=== PATIENT | female | born 1955 | race Caucasian/White ===

== ENCOUNTER 2023-08-07 06:17 | Outpatient (RCR) | payer MEDICARE, SELFPAY | END 2023-08-07 23:59 | disposition home or self-care (01) | LOC: RPT 06:17 | PROVIDERS: ATTENDING PHYSICIAN Physical Medicine & Rehabilitation; FAMILY PHYSICIAN Physician Assistant | DX: I63.512 Cerebral infarction due to unspecified occlusion or stenosis of left middle cerebral artery (principal); I69.320 Aphasia following cerebral infarction; Z73.6 Limitation of activities due to disability | CPT/HCPCS: 92523; 97110; 97163; 97167; 97530 ==

== ENCOUNTER 2023-09-12 09:28 | Outpatient (RCR) | payer MEDICARE, SELFPAY | END 2023-09-12 23:59 | disposition home or self-care (01) | LOC: RPT 09:28 | PROVIDERS: ATTENDING PHYSICIAN Physical Medicine & Rehabilitation; FAMILY PHYSICIAN Physician Assistant | DX: I69.320 Aphasia following cerebral infarction (principal); Z73.6 Limitation of activities due to disability | CPT/HCPCS: 92507; 97110; 97112; 97116; 97530; 97535 ==

== ENCOUNTER 2023-10-08 11:40 | Emergency (ER) | payer MEDICARE, SELFPAY ==
[2023-10-08 11:44] VITALS: BP 201/111
--- NOTE | 2023-10-08 12:09 | ED.PDOC.TRB ---
ED Provider Triage
-
A medical screening examination has been initiated by a qualified medical provider. Based on the assessment performed at this time, it has been determined that an emergent medical condition may exist and the patient has been informed that further
medical evaluation and possible additional diagnostic testing may be needed.
HPI: This is a medical evaluation conducted in person to initiate diagnostic evaluation and provide initial therapeutics. Please see further documentation by the treating clinician.
GENERAL: Alert , in no apparent distress
EYE: No visual abnormalities.
ENT: No visible abnormalities.
LUNGS: No acute respiratory distress
NEUROLOGICAL: Alert and oriented, aphasia
no appreciated R or L sided deficitis for weakness
SKIN: Skin intact. No visible changes.
MUSCULOSKELETAL: Moving extremities normally
PSYCH: Normal and appropriate interaction.
68 y/o F with h/o recent ischemic stroke not ac
stent L carotid?
mass general
residual aphasia and minimal R sided weakness
1 week of L sided weakness appreciated by PT today and sent in
no headache
pain and some dizziness with turning her head to the R
on exam some aphasia whichi s baseline
no weakness appreciated
labs, cta.
[2023-10-08 12:15] LABS: % Basophils 0.5 % (0-2); % Eosinophils 0.8 % (0-6); % Immature Granulocytes 0.3 % (0-0.5); % Lymphocytes 17.3 % (20.5-51.1); % Monocytes 4.7 % (1.7-9.3); % Neutrophils 76.4 % (42.2-75.2); Absolute Basophils 0.1 10^3/uL (0-0.2); Absolute Eosinophils 0.1 10^3/uL (0-0.7); Absolute Monocytes 0.5 10^3/uL (0.1-0.6); Absolute Neutrophils 8.7 10^3/uL (1.4-6.5); Hematocrit 44.1 % (37.0-47.0); Hemoglobin 15.5 g/dL (12.0-16.0); Mean Corp Hgb Conc. 35.1 g/dL (33.0-37.0); Mean Corpuscular Hgb 29.5 pg (27.0-31.0); Mean Corpuscular Volume 83.8 fL (81.0-99.0); Nucleated Red Blood Cells % 0 %; Platelet Count 338 10^3/uL (130-400); Red Blood Cell Count 5.26 10^6/uL (4.20-5.40); White Blood Cell Count 11.4 10^3/uL (4.8-10.8)
[2023-10-08 12:27] LABS: INR 0.97; PT 12.7 Sec (11.4-14.6)
[2023-10-08 12:28] LABS: APTT 32.5 Sec (23.4-35.0)
[2023-10-08 12:30] LABS: ALT (SGPT) 23 U/L (0-35); AST (SGOT) 24 U/L (14-36); Albumin 4.5 g/dl (3.5-5.0); Alkaline Phosphatase 164 U/L (38-126); Blood Urea Nitrogen 16 mg/dl (7-17); Carbon Dioxide 32 mmol/L (22-30); Chloride 103 mmol/L (98-107); Glucose 103 mg/dl (70-99); Potassium 4.2 mmol/L (3.5-5.1); Sodium 145 mmol/L (135-145); Total Bilirubin 0.6 mg/dl (0.2-1.3); Total Protein 7.2 g/dl (6.3-8.2); eGFR > 60.00
[2023-10-08 12:38] VITALS: BP 154/94
[2023-10-08 13:00] VITALS: BP 153/80
[2023-10-08 14:36] VITALS: BP 159/85
[2023-10-08 15:00] VITALS: BP 178/89
--- NOTE | 2023-10-08 15:45 | ED.GENMED ---
History of Present Illness
General
Chief Complaint: Weakness
Source: patient
Exam Limitations: none
Time Seen by Provider: 10/08/23 12:28
History of Present Illness
History of Present Illness:
68-year-old female with a history of stroke affecting her right side who presents with slowly progressive left-sided weakness. Reportedly physical therapy noted some weakness as well. The patient does have a noted aphasia but is clearly able to
communicate her concerns. Patient states that when she tests her strength it seems normal but does just not feel right. Little bit in the arm but more notable in the leg. Patient also states she has been dizzy. Patient does have a history of
developing a left-sided stroke and required a left carotid artery stent. She was told the future to evaluate for the right side but after physical therapy. Patient still going through physical therapy. No headache. No vision change in aphasia.
Past History
Past History
ED Past Medical History: CVA, GERD, HTN and Hypercholesterolemia
ED Past Surgical History: Gynecological
Phy Exam
Physical Exam
Physical Exam:
CONSTITUTIONAL Patient alert and oriented to person, place and time. Well-appearing. Vital signs reviewed.
HEAD atraumatic, normocephalic.
EYES eyelids normal to inspection, Pupils equally round and reactive to light, Extraocular muscles intact, Conjunctiva normal, Sclera normal.
NECK normal range of motion, Trachea midline, no jugular venous distention.
RESPIRATORY CHEST No respiratory distress noted, Chest expansion equal, Bilateral breath sounds clear.
CARDIOVASCULAR regular rate and rhythm, Heart sounds normal.
BACK normal inspection, no obvious deformities
UPPER EXTREMITY range of motion normal, Motor strength normal, no cyanosis, no edema.
LOWER EXTREMITY range of motion normal, Motor strength normal, no cyanosis, no edema.
NEURO mild aphasia noted, No focal motor deficits, normal [id number]. No pronator drift. Brenda coma scale 15, Memory normal, Cranial Nerves intact to screening exam.
SKIN skin warm, dry, and normal in color.
PSYCHIATRIC patient oriented to person place and time, Normal affect.
Course
Orders/Labs/Results
Orders:
Orders
10/08/23 11:54
Electrocardiogram (*1) Urgent
Reason for Study: Fatigue / Weakness
EKG- Treatment ONCE
10/08/23 12:03
CT Head & Neck Angio W/wo IV Urgent
Comment: ischemic stroke, carotid stent L
Reason For Exam: dizziness turning to the R, L weakness
10/08/23 12:06
Complete Blood Count/With Diff Urgent
Comprehensive Metabolic Panel Urgent
PTT Urgent
Prothrombin Time Urgent
Abnormal Lab Results
10/08/23
12:06
WBC 11.4 H 10^3/uL
(4.8-10.8)
Absolute Neuts (auto) 8.7 H 10^3/uL
(1.4-6.5)
Neutrophils % 76.4 H %
(42.2-75.2)
Lymphocytes % 17.3 L %
(20.5-51.1)
Carbon Dioxide 32 H mmol/L
(22-30)
Glucose 103 H mg/dl
(70-99)
Alkaline Phosphatase 164 H U/L
(38-126)
10/08/23 12:06
10/08/23 12:06
Vital Signs
Initial and Last Documented VS:
Initial Vital Signs
Temp Pulse Resp BP Pulse Ox
98.0 F 92 16 201/111 98
10/08/23 11:44 10/08/23 11:44 10/08/23 11:44 10/08/23 11:44 10/08/23 11:44
Last Documented Vital Signs
Temp Pulse Resp BP Pulse Ox
98.0 F 78 17 178/89 98
10/08/23 11:44 10/08/23 15:45 10/08/23 15:45 10/08/23 15:00 10/08/23 11:44
MDM/Problems Addressed
MDM/Problems Addressed:
Left-sided weakness, cerebrovascular disease
*Radiology
Radiology exam reviewed: radiology read reviewed
*Pulse Oximetry
Patient hypoxic: no
*EKG
Interpreted by ED Provider?: Yes
Interpretation: normal
Rate: normal
Rhythm: sinus
Derry: normal axis
QRS Pattern: normal QRS
Ischemia: no ischemia
*International Sales Manager Interpretation
Rate: normal
Interpretation: normal
Rhythm: sinus
*Critical Care Note
Total Time (30-74mins, 75-104mins- exclusive of procedures): Not Applicable
Data Reviewed
Source: patient and family
Prescriptions/Medications Considered But Not Given:
Consider tnk but symptoms have been ongoing for 1 week. Also no current focal findings
Patient Management
Discussion with other providers: Plug Maker (Neurology)
Escalation/DeEscalation of care consider admission/obs:
Case discussed with Dr. Hallman. CTA results reviewed with him. Patient is already on aspirin and Plavix and medical management. Dr. Hallman does not recommend anything further at this point and feel she can follow as an outpatient. Her exam is
nonfocal on my assessment as far as new findings. She does continue to have a mild aphasia. I did forward her name to neurology who will arrange outpatient follow-up.
ED Attending Note
-
Portions of this chart may have been created with voice recognition software.� Occasional wrong word or��sound alike� substitutions may have occurred due to the inherent limitations of voice recognition software.
Discharge Plan
Departure
Patient Disposition: Home (Routine Discharge)
Date of Disposition: 10/08/23
Time of Disposition: 16:49
Patient with high blood pressure during this ER visit?: Yes
Discharge Problem:
Weakness
Instructions: Generalized Weakness (DC), BLOOD PRESSURE
Referrals:
Toño Hallman MD [Active] -
UNKNOWN - PT DOES,NOT KNOW [Family Provider] -
Activity Restrictions/Additional Instructions:
Please see neurology in the next 1 to 2 weeks for follow-up and reevaluation. Return for numbness, tingling, motor weakness, worsening aphasia, headache, vision changes or any other concerns. Please continue your aspirin and Plavix as prescribed.
Interventions
Interventions:
*Risk Screen - Suicide Last Done: 10/08/23 12:19
*General Assessment Last Done: 10/08/23 12:24
*Neglect/Abuse Screening Last Done: 10/08/23 12:19
ED- Fall Risk Assessment Last Done: 10/08/23 12:24
*ED COVID-19 Vaccine History Last Done: 10/08/23 12:24
ED- Cardiac Assessment Last Done: 10/08/23 12:45
ED- Neurological Assessment Last Done: 10/08/23 12:42
ED- Pulmonary Assessment Last Done: 10/08/23 12:42
Discharge Date and Time
Print Language: PAKISTANI
== END 2023-10-08 17:06 | disposition home or self-care (01) ==
LOC: EMR 11:40
PROVIDERS: Physician Assistant; EMERGENCY PHYSICIAN Emergency Medicine
DX: R53.1 Weakness (principal); R42 Dizziness and giddiness; I69.354 Hemiplegia and hemiparesis following cerebral infarction affecting left non-dominant side; I69.320 Aphasia following cerebral infarction; I10 Essential (primary) hypertension; E78.00 Pure hypercholesterolemia, unspecified; K21.9 Gastro-esophageal reflux disease without esophagitis; Z91.048 Other nonmedicinal substance allergy status; Z79.82 Long term (current) use of aspirin
CPT/HCPCS: 99285; 70496; 70498; 80053; 85025; 85610; 85730; 92507; 93005; 97110; 97112; 97530; Q9967

== ENCOUNTER 2023-10-12 11:45 | Outpatient (RCR) | payer MEDICARE, SELFPAY | END 2023-10-12 23:59 | disposition home or self-care (01) | LOC: RPT 11:45 | PROVIDERS: ATTENDING PHYSICIAN Physical Medicine & Rehabilitation; FAMILY PHYSICIAN Physician Assistant | DX: I63.512 Cerebral infarction due to unspecified occlusion or stenosis of left middle cerebral artery (principal); I69.320 Aphasia following cerebral infarction (principal); I69.398 Other sequelae of cerebral infarction; Z73.6 Limitation of activities due to disability | CPT/HCPCS: 92507; 97110; 97112; 97116; 97140; 97530; 97535 ==

== ENCOUNTER 2023-11-09 06:36 | Outpatient (RCR) | payer MEDICARE, SELFPAY | END 2023-11-09 23:59 | disposition home or self-care (01) | LOC: RPT 06:36 | PROVIDERS: ATTENDING PHYSICIAN Physical Medicine & Rehabilitation; FAMILY PHYSICIAN Physician Assistant | DX: I63.512 Cerebral infarction due to unspecified occlusion or stenosis of left middle cerebral artery (principal); I69.351 Hemiplegia and hemiparesis following cerebral infarction affecting right dominant side; I69.320 Aphasia following cerebral infarction; Z73.6 Limitation of activities due to disability | CPT/HCPCS: 92507; 97010; 97022; 97110; 97112; 97116; 97530; 97535 ==

== ENCOUNTER 2023-12-11 06:04 | Outpatient (RCR) | payer MEDICARE, SELFPAY | END 2023-12-11 23:59 | disposition home or self-care (01) | LOC: RPT 06:04 | PROVIDERS: ATTENDING PHYSICIAN Physical Medicine & Rehabilitation; FAMILY PHYSICIAN Physician Assistant | DX: I69.320 Aphasia following cerebral infarction (principal); Z73.6 Limitation of activities due to disability; I69.351 Hemiplegia and hemiparesis following cerebral infarction affecting right dominant side; I69.328 Other speech and language deficits following cerebral infarction | CPT/HCPCS: 92507; 97110; 97112; 97530; 97535 ==

== ENCOUNTER 2024-01-11 08:07 | Outpatient (RCR) | payer MEDICARE, SELFPAY | END 2024-01-11 23:59 | disposition home or self-care (01) | LOC: RPT 08:07 | PROVIDERS: ATTENDING PHYSICIAN Physical Medicine & Rehabilitation; FAMILY PHYSICIAN Physician Assistant | DX: I69.320 Aphasia following cerebral infarction (principal); Z73.6 Limitation of activities due to disability; I69.354 Hemiplegia and hemiparesis following cerebral infarction affecting left non-dominant side; I69.351 Hemiplegia and hemiparesis following cerebral infarction affecting right dominant side; I69.328 Other speech and language deficits following cerebral infarction | CPT/HCPCS: 92507; 97530; 97535 ==

== ENCOUNTER 2024-02-08 07:24 | Outpatient (RCR) | payer MEDICARE, SELFPAY | END 2024-02-08 23:59 | disposition home or self-care (01) | LOC: RPT 07:24 | PROVIDERS: ATTENDING PHYSICIAN Physical Medicine & Rehabilitation; FAMILY PHYSICIAN Physician Assistant | DX: I69.320 Aphasia following cerebral infarction (principal); I69.351 Hemiplegia and hemiparesis following cerebral infarction affecting right dominant side; Z73.6 Limitation of activities due to disability; I69.328 Other speech and language deficits following cerebral infarction | CPT/HCPCS: 92507; 97112; 97530; 97535 ==

== ENCOUNTER 2024-03-14 06:52 | Outpatient (RCR) | payer MEDICARE, MEDICAID, SELFPAY | END 2024-03-14 23:59 | disposition home or self-care (01) | LOC: RPT 06:52 | PROVIDERS: ATTENDING PHYSICIAN Physical Medicine & Rehabilitation; FAMILY PHYSICIAN Physician Assistant | DX: I69.320 Aphasia following cerebral infarction (principal); I69.351 Hemiplegia and hemiparesis following cerebral infarction affecting right dominant side; Z73.6 Limitation of activities due to disability; I69.328 Other speech and language deficits following cerebral infarction | CPT/HCPCS: 92507; 97530; 97535 ==

== ENCOUNTER 2024-04-11 08:06 | Outpatient (RCR) | payer MEDICARE, MEDICAID, SELFPAY | END 2024-04-11 23:59 | disposition home or self-care (01) | LOC: RPT 08:06 | PROVIDERS: ATTENDING PHYSICIAN Physical Medicine & Rehabilitation; FAMILY PHYSICIAN Physician Assistant | DX: I69.320 Aphasia following cerebral infarction (principal); I69.351 Hemiplegia and hemiparesis following cerebral infarction affecting right dominant side; Z73.6 Limitation of activities due to disability; I69.328 Other speech and language deficits following cerebral infarction | CPT/HCPCS: 92507; 97530; 97535; 97537 ==

== ENCOUNTER 2024-05-09 07:32 | Outpatient (RCR) | payer MEDICARE, MEDICAID, SELFPAY | END 2024-05-09 23:59 | disposition home or self-care (01) | LOC: RPT 07:32 | PROVIDERS: ATTENDING PHYSICIAN Physical Medicine & Rehabilitation; FAMILY PHYSICIAN Physician Assistant | DX: I69.320 Aphasia following cerebral infarction (principal); I69.351 Hemiplegia and hemiparesis following cerebral infarction affecting right dominant side; Z73.6 Limitation of activities due to disability; I69.328 Other speech and language deficits following cerebral infarction | CPT/HCPCS: 92507; 97110; 97530; 97535; 97537 ==

== ENCOUNTER 2024-06-10 06:26 | Outpatient (RCR) | payer MEDICARE, MEDICAID, SELFPAY | END 2024-06-10 23:59 | disposition home or self-care (01) | LOC: RPT 06:26 | PROVIDERS: ATTENDING PHYSICIAN Physical Medicine & Rehabilitation; FAMILY PHYSICIAN Physician Assistant | DX: I69.320 Aphasia following cerebral infarction (principal); I69.351 Hemiplegia and hemiparesis following cerebral infarction affecting right dominant side; Z73.6 Limitation of activities due to disability; I69.328 Other speech and language deficits following cerebral infarction; I63.512 Cerebral infarction due to unspecified occlusion or stenosis of left middle cerebral artery | CPT/HCPCS: 92507; 97110; 97112; 97535; 97537 ==

== ENCOUNTER 2024-07-08 07:53 | Outpatient (RCR) | payer MEDICARE, MEDICAID, SELFPAY | END 2024-07-08 23:59 | disposition home or self-care (01) | LOC: RPT 07:53 | PROVIDERS: ATTENDING PHYSICIAN Physical Medicine & Rehabilitation; FAMILY PHYSICIAN Physician Assistant | DX: I69.320 Aphasia following cerebral infarction (principal); I69.351 Hemiplegia and hemiparesis following cerebral infarction affecting right dominant side; Z73.6 Limitation of activities due to disability; I69.328 Other speech and language deficits following cerebral infarction; I63.512 Cerebral infarction due to unspecified occlusion or stenosis of left middle cerebral artery | CPT/HCPCS: 92507; 97110; 97112; 97530; 97535; 97537 ==

== ENCOUNTER 2024-08-08 09:04 | Outpatient (RCR) | payer MEDICARE, MEDICAID, SELFPAY | END 2024-08-08 23:59 | disposition home or self-care (01) | LOC: RPT 09:04 | PROVIDERS: ATTENDING PHYSICIAN Physical Medicine & Rehabilitation; FAMILY PHYSICIAN Physician Assistant | DX: I69.320 Aphasia following cerebral infarction (principal); I69.351 Hemiplegia and hemiparesis following cerebral infarction affecting right dominant side; Z73.6 Limitation of activities due to disability; I69.328 Other speech and language deficits following cerebral infarction; I63.512 Cerebral infarction due to unspecified occlusion or stenosis of left middle cerebral artery | CPT/HCPCS: 92507; 97110; 97112; 97530; 97535; 97537 ==

== ENCOUNTER 2024-09-09 07:11 | Outpatient (RCR) | payer MEDICARE, MEDICAID, SELFPAY | END 2024-09-09 23:59 | disposition home or self-care (01) | LOC: RPT 07:11 | PROVIDERS: ATTENDING PHYSICIAN Physical Medicine & Rehabilitation; FAMILY PHYSICIAN Physician Assistant | DX: I69.320 Aphasia following cerebral infarction (principal); I69.351 Hemiplegia and hemiparesis following cerebral infarction affecting right dominant side; Z73.6 Limitation of activities due to disability; I69.328 Other speech and language deficits following cerebral infarction; I63.512 Cerebral infarction due to unspecified occlusion or stenosis of left middle cerebral artery | CPT/HCPCS: 92507; 97530; 97535 ==

== ENCOUNTER 2024-10-09 09:26 | Outpatient (RCR) | payer MEDICARE, MEDICAID, SELFPAY | END 2024-10-09 23:59 | disposition home or self-care (01) | LOC: RPT 09:26 | PROVIDERS: ATTENDING PHYSICIAN Physical Medicine & Rehabilitation; FAMILY PHYSICIAN Physician Assistant | DX: I69.320 Aphasia following cerebral infarction (principal); I69.351 Hemiplegia and hemiparesis following cerebral infarction affecting right dominant side; Z73.6 Limitation of activities due to disability; I69.328 Other speech and language deficits following cerebral infarction | CPT/HCPCS: 92507; 97112; 97530; 97535; 97537 ==

== ENCOUNTER 2024-10-30 08:52 | Outpatient (RCR) | payer MEDICARE, MEDICAID, SELFPAY | END 2024-10-30 23:59 | disposition home or self-care (01) | LOC: RPT 08:52 | PROVIDERS: ATTENDING PHYSICIAN Physical Medicine & Rehabilitation; FAMILY PHYSICIAN Physician Assistant | DX: I69.320 Aphasia following cerebral infarction (principal); I69.351 Hemiplegia and hemiparesis following cerebral infarction affecting right dominant side; Z73.6 Limitation of activities due to disability; I69.328 Other speech and language deficits following cerebral infarction | CPT/HCPCS: 92507; 97530; 97537 ==

== ENCOUNTER 2024-12-12 06:56 | Outpatient (RCR) | payer MEDICARE, MEDICAID, SELFPAY | END 2024-12-12 23:59 | disposition home or self-care (01) | LOC: RPT 06:56 | PROVIDERS: ATTENDING PHYSICIAN Physical Medicine & Rehabilitation; FAMILY PHYSICIAN Physician Assistant | DX: I69.320 Aphasia following cerebral infarction (principal); I69.351 Hemiplegia and hemiparesis following cerebral infarction affecting right dominant side; Z73.6 Limitation of activities due to disability; I69.328 Other speech and language deficits following cerebral infarction | CPT/HCPCS: 92507; 97530; 97535; 97537 ==

== ENCOUNTER → 2024-12-17 11:44 | Outpatient (REF) | payer MEDICARE, MEDICAID, SELFPAY | LOC: PAVMRI 11:44 | PROVIDERS: ATTENDING PHYSICIAN Nurse Practitioner Family; FAMILY PHYSICIAN Physician Assistant Medical | DX: R20.0 Anesthesia of skin (principal); I65.02 Occlusion and stenosis of left vertebral artery; Z95.828 Presence of other vascular implants and grafts | CPT/HCPCS: 70544; 70547; 70551 ==

== ENCOUNTER 2025-01-09 06:46 | Outpatient (RCR) | payer MEDICARE, MEDICAID, SELFPAY | END 2025-01-09 23:59 | disposition home or self-care (01) | LOC: RPT 06:46 | PROVIDERS: ATTENDING PHYSICIAN Physical Medicine & Rehabilitation; FAMILY PHYSICIAN Physician Assistant | DX: I69.320 Aphasia following cerebral infarction (principal); I69.351 Hemiplegia and hemiparesis following cerebral infarction affecting right dominant side; Z73.6 Limitation of activities due to disability; I69.328 Other speech and language deficits following cerebral infarction | CPT/HCPCS: 92507; 97530; 97535; 97537 ==

== ENCOUNTER 2025-02-10 07:11 | Outpatient (RCR) | payer MEDICARE, SELFPAY | END 2025-02-10 23:59 | disposition home or self-care (01) | LOC: RPT 07:11 | PROVIDERS: ATTENDING PHYSICIAN Physical Medicine & Rehabilitation; FAMILY PHYSICIAN Physician Assistant | DX: I69.320 Aphasia following cerebral infarction (principal); I69.351 Hemiplegia and hemiparesis following cerebral infarction affecting right dominant side; Z73.6 Limitation of activities due to disability; I69.328 Other speech and language deficits following cerebral infarction | CPT/HCPCS: 92507; 97162; 97530; 97535; 97537 ==